=== PATIENT | male | born 1960 | race Caucasian/White ===

== ENCOUNTER 2021-01-03 09:57 | Emergency (ER) | payer OTHER ==
[~2021-01-03] VITALS: Ht 180.3 cm; Wt 90.7 kg
[2021-01-03] MEDS ORDERED: TOPROL XL50 MG PO (10:14)
[2021-01-03 11:54] VITALS: BP 158/99
== END 2021-01-03 11:54 | disposition home or self-care (01) ==
LOC: M.ERS 09:57
DX: J39.2 Other diseases of pharynx (principal); I10 Essential (primary) hypertension